=== PATIENT | male | born 1935 | race Hispanic/Latino ===

== ENCOUNTER 2018-01-21 00:19 | Inpatient (IN) | payer MEDICARE ==
[2018-01-21] VITALS (13 sets, daily range): BP systolic 127–169; BP diastolic 56–78
[~2018-01-21] VITALS: Ht 165.1 cm; Wt 72.2 kg
[2018-01-21] MEDS ORDERED: HYDRALAZINE HCL 20 MG/ML VIAL IV PRN (02:00)
[2018-01-21] MEDS ORDERED: ONDANSETRON HCL MDV 20ML 2 MG/ML VIAL IVP PRN (02:00)
[2018-01-21] MEDS ORDERED: ACETAMINOPHEN 325 MG TAB PO PRN (02:00)
[2018-01-21] MEDS: NITROGLYCERIN 1GM/1 INCH PACKET TD SCH ×4 (02:42→22:05)
[2018-01-21 04:01] LABS: HEMATOCRIT 35.3 % (42-54); MEAN CORPUSCULAR HEMOGLOBIN 32.8 pg (27.0-33.0); MEAN CORPUSCULAR HGB CONC 34.8 g/dL (32.0-36.0); MEAN CORPUSCULAR VOLUME 94.2 fL (79-99); PLATELET COUNT (AUTO) 131 K/uL (130-400); RED BLOOD CELL COUNT(AUTO) 3.74 MIL/uL (4.50-6.20); RED CELL DISTRIBUTION WIDTH 13.1 % (11.0-15.5)
[2018-01-21 04:10] LABS: CREATININE 1.1 mg/dL (0.5-1.5); POTASSIUM 3.9 mmol/L (3.5-5.1)
[2018-01-21 04:11] LABS: INR 1.05 (0.85-1.15)
[2018-01-21] MEDS ORDERED: LIDOCAINE HCL 2% 20ML ONE (07:58)
[2018-01-21] MEDS ORDERED: IOPAMIDOL-370 75 ML VIAL IV ONE (07:58)
[2018-01-21] MEDS ORDERED: ISOVUE-370 50ML VIAL IV ONE (07:58)
[2018-01-21] MEDS ORDERED: NITROGLYCERIN 5 MG/ML 10 ML VIAL IV ONE (07:58)
[2018-01-21] MEDS: ASPIRIN 325MG EC TAB 325 MG TABLET.DR PO SCH (09:00)
[2018-01-21] MEDS ORDERED: ENOXAPARIN SODIUM 1 MG/KG SQ SCH (09:00)
[2018-01-21] MEDS ORDERED: DEXTROSE 50%-WATER 50 ML DISP.SYRIN IV PRN (09:15)
[2018-01-21] MEDS ORDERED: GLUCAGON 1MG KIT 1 MG ML IM PRN (09:15)
[2018-01-21] MEDS ORDERED: ENOXAPARIN SODIUM 80 MG/0.8 ML SQ SCH ×2 (09:15)
[2018-01-21] MEDS ORDERED: CALCIUM CHLORIDE 100 MG/ML 10 ML SYG IVP ONE (12:00)
[2018-01-21] MEDS ORDERED: HEPARIN SODIUM 1000UNIT/ML 10ML VIAL IV ONE (12:00)
[2018-01-21] MEDS ORDERED: MAGNESIUM HYDROXIDE 30 ML/UDCUP PO PRN (16:15)
[2018-01-21] MEDS: FUROSEMIDE 20 MG TABLET PO SCH (16:52)
[2018-01-21] MEDS: LISINOPRIL 20 MG TABLET PO SCH (16:52)
[2018-01-21] MEDS: METOPROLOL TARTRATE 25 MG TAB PO SCH ×2 (16:52→22:05)
[2018-01-21 16:54] LABS: HEMOGLOBIN A1C 6.2 % (4.0-6.0)
[2018-01-21 16:59] LABS: CHOLESTEROL 141 mg/dL (<200); HDL CHOLESTEROL 35 mg/dL (29-71); LDL DIRECT 105 mg/dL (0-99); TRIGLYCERIDES 83 mg/dL (30-200)
[2018-01-22] MEDS: NITROGLYCERIN 1GM/1 INCH PACKET TD SCH ×3 (03:12→17:40)
[2018-01-22 03:53] VITALS: BP 138/59
[2018-01-22 05:11] LABS: BASOPHILS % (AUTO) 0.6 % (0.0-5.0); EOSINOPHILS % (AUTO) 3.1 % (0.0-8.0); HEMATOCRIT 33.5 % (42-54); LYMPHOCYTES % (AUTO) 28.8 % (21.0-51.0); MEAN CORPUSCULAR HEMOGLOBIN 34.1 pg (27.0-33.0); MEAN CORPUSCULAR HGB CONC 36.1 g/dL (32.0-36.0); MEAN CORPUSCULAR VOLUME 94.3 fL (79-99); MONOCYTES % (AUTO) 9.2 % (3.0-13.0); NEUTROPHILS % (AUTO) 58.3 % (40.0-77.0); PLATELET COUNT (AUTO) 121 K/uL (130-400); RED BLOOD CELL COUNT(AUTO) 3.55 MIL/uL (4.50-6.20); RED CELL DISTRIBUTION WIDTH 13.4 % (11.0-15.5)
[2018-01-22 05:22] LABS: INR 1.05 (0.85-1.15); PARTIAL THROMBOPLASTIN TIME 25.8 SEC (26.3-35.5)
[2018-01-22 05:28] LABS: CREATININE 1.1 mg/dL (0.5-1.5); MAGNESIUM 2.3 mg/dL (1.80-2.40); PHOSPHORUS 3.6 mg/dL (2.5-4.9); POTASSIUM 3.8 mmol/L (3.5-5.1)
[2018-01-22 07:36] VITALS: BP 123/66
[2018-01-22] MEDS: METOPROLOL TARTRATE 25 MG TAB PO SCH (08:53)
[2018-01-22] MEDS: FUROSEMIDE 20 MG TABLET PO SCH (09:00)
[2018-01-22] MEDS: ASPIRIN 325MG EC TAB 325 MG TABLET.DR PO SCH (09:00)
[2018-01-22] MEDS: LISINOPRIL 20 MG TABLET PO SCH (09:00)
[2018-01-22] MEDS ORDERED: HYDR25TA PO (10:42)
[2018-01-22 11:20] VITALS: BP 130/67
[2018-01-22] MEDS ORDERED: CEFUROXIME 1.5GM+NS 100ML 100 ML IV SCH (12:00)
[2018-01-22] MEDS ORDERED: CEFUROXIME SODIUM 1.5 GM VIAL IVP SCH (12:00)
[2018-01-22 16:05] VITALS: BP 108/61
[2018-01-22] MEDS ORDERED: EPINEPHRINE 1 MG/ML AMPULE ONE (18:03)
[2018-01-22] MEDS ORDERED: HEPARIN SODIUM 1000UNIT/ML 10ML VIAL ONE (18:03)
[2018-01-22] MEDS ORDERED: ESMOLOL HCL 10 MG/ML 10 ML VIAL ONE (18:03)
[2018-01-22] MEDS ORDERED: LIDOCAINE PF 2% 5ML ABBOJECT ONE (18:03)
[2018-01-22] MEDS ORDERED: ROCURONIUM BROMIDE 10MG/1ML 5ML VL ONE (18:03)
[2018-01-22] MEDS ORDERED: NOREPINEPHRINE BITARTRATE 1 MG/1 ML ML IV ONE (18:03)
[2018-01-22] MEDS ORDERED: PROTAMINE SULFATE 10 MG/ML 25ML VIAL IV ONE (18:03)
[2018-01-22] MEDS ORDERED: NEOSTIGMINE 5MG/5ML SYR IV ONE (18:03)
[2018-01-22] MEDS ORDERED: GLYCOPYRROLATE 0.2 MG/ML 5 ML VIAL ONE (18:03)
[2018-01-22] MEDS ORDERED: MILRINONE-D5W 20 MG/100 ML 0 ML IV ONE (18:03)
[2018-01-22] MEDS ORDERED: AMINOCAPROIC ACID 250 MG/ML 20 ML VIAL IV ONE (18:03)
[2018-01-22] MEDS ORDERED: PROPOFOL 10 MG/ML 20ML VIAL IV ONE (18:04)
[2018-01-22] MEDS ORDERED: FENTANYL CITRATE PF 50 MCG/1 ML 20ML VIAL IJ ONE (18:04)
[2018-01-22] MEDS ORDERED: MIDAZOLAM HCL 1 MG/ML 5ML VIAL ONE (18:04)
[2018-01-22 18:27] LABS: ABG BASE EXCESS -3.6 mmol/L (-2.0-3.0); ABG HCO3 20.6 mmol/L (21.0-28.0); ABG OXYGEN SATURATION 99.2 % (95.0-99.0); ABG PCO2 34 mmHg (35-48)
[2018-01-22] MEDS ORDERED: THROMBIN-JMI 5000 UNIT/VIAL TP ONE (18:38)
[2018-01-22] MEDS ORDERED: DELNIDO FORMULA 1 BAG IV ONE (18:38)
[2018-01-22] MEDS ORDERED: BACITRACIN 50,000 UNIT VIAL ONE (18:53)
[2018-01-22 19:56] LABS: ABG BASE EXCESS -3.7 mmol/L (-2.0-3.0); ABG HCO3 20.6 mmol/L (21.0-28.0); ABG OXYGEN SATURATION 98.7 % (95.0-99.0); ABG PCO2 35 mmHg (35-48)
[2018-01-22 21:02] LABS: ABG BASE EXCESS -6.1 mmol/L (-2.0-3.0); ABG HCO3 18.8 mmol/L (21.0-28.0); ABG OXYGEN SATURATION 96.5 % (95.0-99.0); ABG PCO2 35 mmHg (35-48)
[2018-01-22] MEDS ORDERED: SODIUM CHLORIDE 0.9% 500ML 500 ML IV SCH (21:29)
[2018-01-22] MEDS ORDERED: INSULIN REGULAR, HUMAN 3ML 100 UNIT in SODIUM CHLORIDE 0.9% 99 ML IV SCH ×2 (21:30)
[2018-01-22] MEDS ORDERED: SODIUM CHLORIDE 0.9% 1000ML 1,000 ML IV SCH (21:30)
[2018-01-22] MEDS ORDERED: EPINEPHRINE 2 MG in SODIUM CHLORIDE 0.9% 250 ML IV PRN (21:30)
[2018-01-22] MEDS ORDERED: AMINOCAPROIC ACID 15,000 MG in SODIUM CHLORIDE 0.9% 250 ML IV SCH (21:30)
[2018-01-22] MEDS ORDERED: ACETAMINOPHEN 650 MG SUPPOSITORY RC PRN (21:30)
[2018-01-22] MEDS ORDERED: TRAMADOL HCL 50 MG TABLET PO PRN (21:30)
[2018-01-22] MEDS ORDERED: MORPHINE SULFATE 2 MG/ML 1ML SYG IV PRN (21:30)
[2018-01-22] MEDS ORDERED: NITROGLYCERIN 50 MG/D5% WATER 250 BOT IV SCH (21:30)
[2018-01-22] MEDS ORDERED: MAGNESIUM 2GM PREMIX 50ML 50 ML IV PRN (21:30)
[2018-01-22] MEDS ORDERED: ACETAMINOPHEN 325 MG TAB PO PRN (21:30)
[2018-01-22] MEDS ORDERED: POTASSIUM PHOS 15 mMOL+NS250ML 250 ML IV PRN (21:30)
[2018-01-22] MEDS ORDERED: ONDANSETRON HCL 4 MG/2 ML VIAL IV PRN (21:30)
[2018-01-22] MEDS ORDERED: SODIUM CHLORIDE 0.9% 10 ML VIAL IVP PRN (21:30)
[2018-01-22] MEDS ORDERED: GLUCAGON 1MG KIT 1 MG ML IM PRN (21:30)
[2018-01-22] MEDS ORDERED: SODIUM CHLORIDE 0.9% 250 ML IV PRN (21:30)
[2018-01-22] MEDS ORDERED: PROPOFOL 1000 MG/100 ML 100 ML IV PRN (21:30)
[2018-01-22] MEDS ORDERED: SODIUM BICARB 8.4% 50ML SYRINGE IV PRN (21:30)
[2018-01-22] MEDS ORDERED: DEXTROSE 50%-WATER 50 ML DISP.SYRIN IV PRN (21:30)
[2018-01-22] MEDS ORDERED: NOREPINEPHRINE 4MG/NS 250ML 250 ML IV PRN (21:30)
[2018-01-22] MEDS ORDERED: NICARDIPINE HCL 100 MG in SODIUM CHLORIDE 0.9% 100 ML IV PRN (21:30)
[2018-01-22] MEDS ORDERED: ALBUMIN (HUMAN) 5% 250 ML IV PRN (21:30)
[2018-01-22 22:43] LABS: ABG BASE EXCESS -9.3 mmol/L (-2.0-3.0); ABG HCO3 16.8 mmol/L (21.0-28.0); ABG OXYGEN SATURATION 96.5 % (95.0-99.0); ABG PCO2 38 mmHg (35-48)
[2018-01-22] MEDS ORDERED: CEFUROXIME SODIUM 1.5 GM VIAL ONE (22:43)
[2018-01-22] MEDS ORDERED: SODIUM BICARB 50MEQ 50ML VIAL ONE (22:43)
[2018-01-22] MEDS ORDERED: OCTYL 2-CYANOACRYLATE 1 EACH TP ONE (22:53)
[2018-01-22] MEDS ORDERED: EPHEDRINE SULFATE 50 MG/ML AMPULE ONE (23:04)
[2018-01-22 23:30] VITALS: BP 149/79
[2018-01-22 23:45] VITALS: BP 160/71
[2018-01-23] VITALS (28 sets, daily range): BP systolic 99–137; BP diastolic 54–76
[2018-01-23 00:01] LABS: HEMATOCRIT 31.6 % (42-54); MEAN CORPUSCULAR HGB CONC 34.6 g/dL (32.0-36.0); MEAN CORPUSCULAR VOLUME 95.4 fL (79-99); PLATELET COUNT (AUTO) 122 K/uL (130-400); RED BLOOD CELL COUNT(AUTO) 3.31 MIL/uL (4.50-6.20); RED CELL DISTRIBUTION WIDTH 13.6 % (11.0-15.5); WHITE BLOOD COUNT (AUTO) 18.2 K/uL (4.8-10.8)
[2018-01-23 00:03] LABS: CREATININE 1.4 mg/dL (0.5-1.5); MAGNESIUM 1.7 mg/dL (1.80-2.40); PHOSPHORUS 6.3 mg/dL (2.5-4.9); POTASSIUM 3.5 mmol/L (3.5-5.1)
[2018-01-23 00:07] LABS: ABG OXYGEN SATURATION 88.5 % (95.0-99.0); ABG PCO2 44 mmHg (35-48)
[2018-01-23] MEDS ORDERED: SODIUM BICARB 50MEQ 50ML VIAL ONE ×2 (00:13→02:14)
[2018-01-23] MEDS: POTASSIUM CHLORIDE 20MEQ/100ML 100 ML IV PRN ×5 (00:29→22:47)
[2018-01-23] MEDS: IPRATROPIUM/ALBUTEROL SULFATE 3 ML SOLUTION IH SCH ×4 (00:45→18:58)
[2018-01-23 01:15] LABS: ABG BASE EXCESS -1.5 mmol/L (-2.0-3.0); ABG HCO3 22.3 mmol/L (21.0-28.0); ABG OXYGEN SATURATION 94.2 % (95.0-99.0); ABG PCO2 35 mmHg (35-48)
[2018-01-23] MEDS: MORPHINE SULFATE 4 MG/1ML SYG IV PRN ×2 (01:16→04:23)
[2018-01-23] MEDS ORDERED: IPRATROPIUM/ALBUTEROL SULFATE 3 ML SOLUTION IH ONE (01:32)
[2018-01-23 04:16] LABS: HEMATOCRIT 32.4 % (42-54); MEAN CORPUSCULAR HEMOGLOBIN 32.7 pg (27.0-33.0); MEAN CORPUSCULAR HGB CONC 34.6 g/dL (32.0-36.0); MEAN CORPUSCULAR VOLUME 94.3 fL (79-99); PLATELET COUNT (AUTO) 118 K/uL (130-400); RED BLOOD CELL COUNT(AUTO) 3.44 MIL/uL (4.50-6.20); RED CELL DISTRIBUTION WIDTH 13.4 % (11.0-15.5); WHITE BLOOD COUNT (AUTO) 15.5 K/uL (4.8-10.8)
[2018-01-23 04:28] LABS: CREATININE 1.6 mg/dL (0.5-1.5); MAGNESIUM 2.3 mg/dL (1.80-2.40); PHOSPHORUS 3.1 mg/dL (2.5-4.9); POTASSIUM 3.6 mmol/L (3.5-5.1)
[2018-01-23] MEDS ORDERED: CEFUROXIME SODIUM 1.5 GM VIAL IVP SCH (05:00)
[2018-01-23 05:12] LABS: ABG BASE EXCESS -1.2 mmol/L (-2.0-3.0); ABG HCO3 22.6 mmol/L (21.0-28.0); ABG OXYGEN SATURATION 98.4 % (95.0-99.0); ABG PCO2 35 mmHg (35-48)
[2018-01-23] MEDS ORDERED: CEFUROXIME 1.5GM+NS 100ML 100 ML IV SCH (05:30)
[2018-01-23] MEDS: CEFUROXIME SODIUM 1.5 GM VIAL IVP SCH ×2 (09:40→21:36)
[2018-01-23] MEDS: ASPIRIN 81MG TAB.CHEW PO SCH (09:41)
[2018-01-23] MEDS: FAMOTIDINE/PF 20 MG/2 ML VIAL IV SCH (09:41)
[2018-01-23] MEDS: ATORVASTATIN CALCIUM 40 MG TABLET PO SCH (09:41)
[2018-01-23] MEDS ORDERED: PHARMACY COMMUNICATION MISC SCH (15:15)
[2018-01-23] MEDS ORDERED: COMPOUND IV REFRIGERATED 1 EACH IVSOLN MISC PRN (16:30)
[2018-01-23 20:09] LABS: ABG BASE EXCESS 6.5 mmol/L (-2.0-3.0); ABG HCO3 30.2 mmol/L (21.0-28.0); ABG OXYGEN SATURATION 96.6 % (95.0-99.0); ABG PCO2 40 mmHg (35-48)
[2018-01-23] MEDS: PIPERACILLIN SODIUM/TAZOBACTAM 2.25 GM in SODIUM CHLORIDE 0.9% 50 ML IV SCH (20:37)
[2018-01-23] MEDS ORDERED: ZOSYN 3.375GM+NS 50ML 50 ML IV SCH (21:00)
[2018-01-23] MEDS ORDERED: FUROSEMIDE 10 MG/ML 2ML VIAL IV SCH (21:00)
[2018-01-23] MEDS ORDERED: ALBUMIN (HUMAN) 25% 100 ML IV SCH (21:03)
[2018-01-23] MEDS ORDERED: ALBUMIN (HUMAN) 25% 100 ML IV ONE (21:06)
[2018-01-23 23:05] LABS: ABG BASE EXCESS 7.1 mmol/L (-2.0-3.0); ABG OXYGEN SATURATION 95.6 % (95.0-99.0); ABG PCO2 41 mmHg (35-48)
[2018-01-24] VITALS (24 sets, daily range): BP systolic 121–189; BP diastolic 52–99
[2018-01-24] MEDS: IPRATROPIUM/ALBUTEROL SULFATE 3 ML SOLUTION IH SCH ×5 (00:10→23:16)
[2018-01-24 00:50] LABS: ABG BASE EXCESS 4.9 mmol/L (-2.0-3.0); ABG HCO3 29.2 mmol/L (21.0-28.0); ABG OXYGEN SATURATION 93.5 % (95.0-99.0); ABG PCO2 42 mmHg (35-48)
[2018-01-24] MEDS: TRAMADOL HCL 50 MG TABLET PO PRN ×2 (02:27→07:22)
[2018-01-24 04:07] LABS: BASOPHILS % (AUTO) 0.1 % (0.0-5.0); HEMATOCRIT 28.7 % (42-54); LYMPHOCYTES % (AUTO) 7.4 % (21.0-51.0); MEAN CORPUSCULAR HEMOGLOBIN 32.8 pg (27.0-33.0); MEAN CORPUSCULAR HGB CONC 34.6 g/dL (32.0-36.0); MEAN CORPUSCULAR VOLUME 94.9 fL (79-99); MONOCYTES % (AUTO) 5.1 % (3.0-13.0); NEUTROPHILS % (AUTO) 87.4 % (40.0-77.0); PLATELET COUNT (AUTO) 109 K/uL (130-400); RED BLOOD CELL COUNT(AUTO) 3.03 MIL/uL (4.50-6.20); RED CELL DISTRIBUTION WIDTH 13.8 % (11.0-15.5); WHITE BLOOD COUNT (AUTO) 13.4 K/uL (4.8-10.8)
[2018-01-24 04:15] LABS: CREATININE 1.7 mg/dL (0.5-1.5); MAGNESIUM 2.2 mg/dL (1.80-2.40); POTASSIUM 3.9 mmol/L (3.5-5.1)
[2018-01-24] MEDS: POTASSIUM CHLORIDE 20MEQ/100ML 100 ML IV PRN (05:06)
[2018-01-24 05:32] LABS: ABG BASE EXCESS 5.5 mmol/L (-2.0-3.0); ABG OXYGEN SATURATION 89.5 % (95.0-99.0); ABG PCO2 43 mmHg (35-48)
[2018-01-24] MEDS ORDERED: FUROSEMIDE 10 MG/ML 2ML VIAL IV SCH (07:45)
[2018-01-24] MEDS: GUAIFENESIN 600 MG TABLET.ER PO SCH ×2 (08:08→20:44)
[2018-01-24] MEDS: PIPERACILLIN SODIUM/TAZOBACTAM 2.25 GM in SODIUM CHLORIDE 0.9% 50 ML IV SCH (08:09)
[2018-01-24] MEDS: FAMOTIDINE/PF 20 MG/2 ML VIAL IV SCH (08:09)
[2018-01-24] MEDS: ATORVASTATIN CALCIUM 40 MG TABLET PO SCH (08:09)
[2018-01-24] MEDS: ASPIRIN 81MG TAB.CHEW PO SCH (08:09)
[2018-01-24] MEDS ORDERED: METOPROLOL TARTRATE 25 MG TAB PO SCH (09:00)
[2018-01-24] MEDS ORDERED: HYDRALAZINE HCL 25 MG TABLET PO SCH (09:00)
[2018-01-24] MEDS: METOPROLOL TARTRATE 25 MG TAB PO SCH ×2 (09:31→20:44)
[2018-01-24] MEDS: ISOSORBIDE MONO 30MG TAB SR PO SCH (09:32)
[2018-01-24] MEDS: ACETYLCYSTEINE 10% 100MG/ML 4ML VIAL IH SCH ×3 (11:03→23:16)
[2018-01-24] MEDS ORDERED: CEFUROXIME SODIUM 1.5 GM VIAL ONE (11:35)
[2018-01-24] MEDS: CEFUROXIME SODIUM 1.5 GM VIAL IVP SCH (11:37)
[2018-01-24] MEDS ORDERED: HYDRALAZINE HCL 20 MG/ML VIAL IV PRN (17:00)
[2018-01-24 17:38] LABS: ABG BASE EXCESS 3.1 mmol/L (-2.0-3.0); ABG HCO3 26.8 mmol/L (21.0-28.0); ABG OXYGEN SATURATION 84.9 % (95.0-99.0); ABG PCO2 38 mmHg (35-48)
[2018-01-24] MEDS: ZOSYN 3.375GM+NS 50ML 50 ML IV SCH (20:43)
[2018-01-24] MEDS: FUROSEMIDE 10 MG/ML 2ML VIAL IV SCH (20:44)
[2018-01-24] MEDS ORDERED: LORAZEPAM 2 MG/ML 1 ML VIAL IVP PRN (20:45)
[2018-01-24] MEDS ORDERED: HALOPERIDOL LACTATE 5 MG/ML VIAL IV PRN (21:00)
[2018-01-24] MEDS ORDERED: FUROSEMIDE 100 MG in SODIUM CHLORIDE 0.9% 90 ML IV SCH (21:00)
[2018-01-24 21:07] LABS: ABG BASE EXCESS 5.4 mmol/L (-2.0-3.0); ABG HCO3 29.3 mmol/L (21.0-28.0); ABG OXYGEN SATURATION 97.9 % (95.0-99.0); ABG PCO2 40 mmHg (35-48)
[2018-01-24] MEDS ORDERED: METOPROLOL TARTRATE 1 MG/ML 5ML VIAL IV ONE (21:11)
[2018-01-24] MEDS ORDERED: METOPROLOL TARTRATE 1 MG/ML 5ML VIAL IV SCH (21:15)
[2018-01-24] MEDS ORDERED: AMLODIPINE BESYLATE 5 MG TAB PO ONE (22:44)
[2018-01-24] MEDS: AMLODIPINE BESYLATE 5 MG TAB PO SCH (23:00)
[2018-01-25] VITALS (24 sets, daily range): BP systolic 88–182; BP diastolic 30–88
[2018-01-25 03:47] LABS: BASOPHILS % (AUTO) 0.2 % (0.0-5.0); LYMPHOCYTES % (AUTO) 8.4 % (21.0-51.0); MEAN CORPUSCULAR HGB CONC 34.2 g/dL (32.0-36.0); MEAN CORPUSCULAR VOLUME 96.6 fL (79-99); MONOCYTES % (AUTO) 2.8 % (3.0-13.0); NEUTROPHILS % (AUTO) 88.6 % (40.0-77.0); NUCLEATED RED BLOOD CELLS 0.1 % (0.0-0.19); PLATELET COUNT (AUTO) 100 K/uL (130-400); RED CELL DISTRIBUTION WIDTH 14.4 % (11.0-15.5); WHITE BLOOD COUNT (AUTO) 13.7 K/uL (4.8-10.8)
[2018-01-25 03:56] LABS: CREATININE 1.7 mg/dL (0.5-1.5); MAGNESIUM 2.2 mg/dL (1.80-2.40); POTASSIUM 3.5 mmol/L (3.5-5.1)
[2018-01-25] MEDS: ACETYLCYSTEINE 10% 100MG/ML 4ML VIAL IH SCH ×3 (06:24→19:17)
[2018-01-25 07:03] LABS: ABG BASE EXCESS 8.9 mmol/L (-2.0-3.0); ABG HCO3 32.7 mmol/L (21.0-28.0); ABG OXYGEN SATURATION 86.8 % (95.0-99.0); ABG PCO2 41 mmHg (35-48)
[2018-01-25] MEDS: FUROSEMIDE 10 MG/ML 2ML VIAL IV SCH ×2 (09:00→20:10)
[2018-01-25] MEDS ORDERED: ENOXAPARIN SODIUM 30 MG/0.3 ML SQ SCH (09:00)
[2018-01-25] MEDS: FAMOTIDINE/PF 20 MG/2 ML VIAL IV SCH (09:12)
[2018-01-25] MEDS: GUAIFENESIN 600 MG TABLET.ER PO SCH ×2 (09:12→20:11)
[2018-01-25] MEDS: ATORVASTATIN CALCIUM 40 MG TABLET PO SCH (09:12)
[2018-01-25] MEDS: METOPROLOL TARTRATE 25 MG TAB PO SCH ×2 (09:13→20:11)
[2018-01-25] MEDS: AMLODIPINE BESYLATE 5 MG TAB PO SCH (09:13)
[2018-01-25] MEDS: ZOSYN 3.375GM+NS 50ML 50 ML IV SCH ×2 (09:14→19:47)
[2018-01-25] MEDS: ISOSORBIDE MONO 30MG TAB SR PO SCH (11:37)
[2018-01-25] MEDS: POTASSIUM CHLORIDE 20MEQ/100ML 100 ML IV PRN ×3 (11:38→17:00)
[2018-01-25 14:01] LABS: ABG BASE EXCESS 8.1 mmol/L (-2.0-3.0); ABG HCO3 32.1 mmol/L (21.0-28.0); ABG PCO2 42 mmHg (35-48)
[2018-01-25] MEDS: CALCIUM GLUCONATE 1 GM in SODIUM CHLORIDE 0.9% 50 ML IV PRN (14:58)
[2018-01-25 15:32] LABS: MAGNESIUM 2.4 mg/dL (1.80-2.40); POTASSIUM 3.3 mmol/L (3.5-5.1)
[2018-01-25] MEDS: INSULIN HUMULIN R 100 UNIT/ML 3ML SQ SCH ×2 (17:03→20:23)
[2018-01-25] MEDS: IPRATROPIUM/ALBUTEROL SULFATE 3 ML SOLUTION IH SCH (19:17)
[2018-01-25] MEDS: ENOXAPARIN SODIUM 30 MG/0.3 ML SQ SCH (19:56)
[2018-01-25] MEDS: ASPIRIN 81MG TAB.CHEW PO SCH (20:11)
[2018-01-26] VITALS (18 sets, daily range): BP systolic 104–145; BP diastolic 46–78
[2018-01-26] MEDS: IPRATROPIUM/ALBUTEROL SULFATE 3 ML SOLUTION IH SCH ×4 (00:04→18:53)
[2018-01-26] MEDS: ACETYLCYSTEINE 10% 100MG/ML 4ML VIAL IH SCH ×4 (00:04→18:53)
[2018-01-26 05:31] LABS: HEMATOCRIT 31.5 % (42-54); MEAN CORPUSCULAR HEMOGLOBIN 32.8 pg (27.0-33.0); MEAN CORPUSCULAR HGB CONC 34.1 g/dL (32.0-36.0); MEAN CORPUSCULAR VOLUME 96.1 fL (79-99); PLATELET COUNT (AUTO) 93 K/uL (130-400); RED BLOOD CELL COUNT(AUTO) 3.28 MIL/uL (4.50-6.20); RED CELL DISTRIBUTION WIDTH 14.2 % (11.0-15.5); WHITE BLOOD COUNT (AUTO) 9.9 K/uL (4.8-10.8)
[2018-01-26 05:37] LABS: CREATININE 1.5 mg/dL (0.5-1.5); POTASSIUM 3.3 mmol/L (3.5-5.1)
[2018-01-26] MEDS: INSULIN HUMULIN R 100 UNIT/ML 3ML SQ SCH ×4 (05:55→20:33)
[2018-01-26] MEDS: FUROSEMIDE 10 MG/ML 2ML VIAL IV SCH ×3 (05:56→20:22)
[2018-01-26] MEDS: POTASSIUM CHLORIDE 20MEQ/100ML 100 ML IV PRN (06:48)
[2018-01-26] MEDS ORDERED: METOPROLOL TARTRATE 1 MG/ML 5ML VIAL IV SCH (08:26)
[2018-01-26] MEDS ORDERED: METOPROLOL TARTRATE 1 MG/ML 5ML VIAL IV ONE (08:29)
[2018-01-26] MEDS ORDERED: AMIODARONE HCL 150 MG in DEXTROSE 5%-WATER 100 ML IV SCH (08:45)
[2018-01-26] MEDS ORDERED: AMIODARONE HCL 900 MG in DEXTROSE 5%-WATER 500 ML IV SCH (08:45)
[2018-01-26] MEDS: ZOSYN 3.375GM+NS 50ML 50 ML IV SCH ×2 (09:06→19:26)
[2018-01-26] MEDS: ISOSORBIDE MONO 30MG TAB SR PO SCH (09:07)
[2018-01-26] MEDS: AMLODIPINE BESYLATE 5 MG TAB PO SCH (09:07)
[2018-01-26] MEDS: GUAIFENESIN 600 MG TABLET.ER PO SCH ×2 (09:07→20:23)
[2018-01-26] MEDS: ASPIRIN 81MG TAB.CHEW PO SCH (09:07)
[2018-01-26] MEDS: ATORVASTATIN CALCIUM 40 MG TABLET PO SCH (09:07)
[2018-01-26] MEDS: FAMOTIDINE/PF 20 MG/2 ML VIAL IV SCH (09:07)
[2018-01-26] MEDS: METOPROLOL TARTRATE 25 MG TAB PO SCH ×2 (09:08→20:23)
[2018-01-26] MEDS: ENOXAPARIN SODIUM 30 MG/0.3 ML SQ SCH (09:08)
[2018-01-26] MEDS: 1/2 NORMAL SALINE + 20 MEQ KCL 1,000 ML IV SCH ×2 (09:17→22:14)
[2018-01-26] MEDS: POTASSIUM CHLORIDE 20 MEQ ERTAB PO SCH (09:26)
[2018-01-26] MEDS: POLYETHYLENE GLYCOL 3350 17 GM POWD.PACK PO SCH (09:26)
[2018-01-27] VITALS (16 sets, daily range): BP systolic 86–133; BP diastolic 39–97
[2018-01-27] MEDS: IPRATROPIUM/ALBUTEROL SULFATE 3 ML SOLUTION IH SCH ×4 (00:33→19:23)
[2018-01-27] MEDS: ACETYLCYSTEINE 10% 100MG/ML 4ML VIAL IH SCH ×4 (00:34→19:23)
[2018-01-27 04:12] LABS: CREATININE 1.6 mg/dL (0.5-1.5); MAGNESIUM 2.4 mg/dL (1.80-2.40); POTASSIUM 3.7 mmol/L (3.5-5.1)
[2018-01-27] MEDS: FUROSEMIDE 10 MG/ML 2ML VIAL IV SCH ×2 (05:06→17:52)
[2018-01-27] MEDS ORDERED: DIGOXIN 250 MCG/ML 2ML AMP ONE (05:49)
[2018-01-27] MEDS ORDERED: DIGOXIN 250 MCG/ML 2ML AMP IV SCH (06:00)
[2018-01-27] MEDS: INSULIN HUMULIN R 100 UNIT/ML 3ML SQ SCH ×4 (06:10→21:00)
[2018-01-27] MEDS: FAMOTIDINE/PF 20 MG/2 ML VIAL IV SCH (08:22)
[2018-01-27] MEDS: ENOXAPARIN SODIUM 30 MG/0.3 ML SQ SCH (08:22)
[2018-01-27] MEDS: METOPROLOL TARTRATE 25 MG TAB PO SCH ×2 (08:22→21:04)
[2018-01-27] MEDS: ZOSYN 3.375GM+NS 50ML 50 ML IV SCH ×2 (08:22→20:06)
[2018-01-27] MEDS: ATORVASTATIN CALCIUM 40 MG TABLET PO SCH (08:23)
[2018-01-27] MEDS: POLYETHYLENE GLYCOL 3350 17 GM POWD.PACK PO SCH (08:23)
[2018-01-27] MEDS: GUAIFENESIN 600 MG TABLET.ER PO SCH ×2 (08:23→21:04)
[2018-01-27] MEDS: AMLODIPINE BESYLATE 5 MG TAB PO SCH (08:23)
[2018-01-27] MEDS: POTASSIUM CHLORIDE 20 MEQ ERTAB PO SCH ×2 (08:23→12:12)
[2018-01-27] MEDS: ASPIRIN 81MG TAB.CHEW PO SCH (08:23)
[2018-01-27] MEDS: TAMSULOSIN HCL 0.4 MG CAP.ER.24H PO SCH (08:23)
[2018-01-27 09:42] LABS: APPEARANCE,URINE Clear (CLEAR); BILIRUBIN,URINE Negative (NEGATIVE); COLOR,URINE Yellow (YELLOW); GLUCOSE, URINE (UA) Negative (NEGATIVE); KETONES,URINE Negative (NEGATIVE); LEUKOCYTE ESTERASE ,URINE Trace (NEGATIVE); NITRATE,URINE Negative (NEGATIVE); OCCULT BLOOD,URINE Large (NEGATIVE); PROTEIN,URINE Trace (NEGATIVE)
[2018-01-27 09:52] LABS: BACTERIA,URINE Rare /HPF (None Seen); SQUAMOUS EPITHELIAL CELL,UR Rare /HPF (0-2); WBC,URINE 0-1 /HPF (0-1)
[2018-01-27] MEDS: DIGOXIN 250 MCG/ML 2ML AMP IV SCH ×3 (11:24→18:00)
[2018-01-27] MEDS: 1/2 NORMAL SALINE + 20 MEQ KCL 1,000 ML IV SCH (12:12)
[2018-01-27] MEDS: POTASSIUM CHLORIDE 20MEQ/100ML 100 ML IV PRN (13:14)
[2018-01-27] MEDS: CALCIUM GLUCONATE 1 GM in SODIUM CHLORIDE 0.9% 50 ML IV PRN (13:16)
[2018-01-27] MEDS ORDERED: METOPROLOL TARTRATE 1 MG/ML 5ML VIAL IV PRN (14:30)
[2018-01-28] MEDS: ACETYLCYSTEINE 10% 100MG/ML 4ML VIAL IH SCH ×2 (00:23→06:28)
[2018-01-28] MEDS: IPRATROPIUM/ALBUTEROL SULFATE 3 ML SOLUTION IH SCH ×5 (00:23→23:43)
[2018-01-28 03:28] VITALS: BP 138/51
[2018-01-28 04:02] LABS: CREATININE 1.3 mg/dL (0.5-1.5)
[2018-01-28] MEDS: INSULIN HUMULIN R 100 UNIT/ML 3ML SQ SCH ×4 (06:19→20:58)
[2018-01-28 07:00] VITALS: BP 163/78
[2018-01-28] MEDS: FUROSEMIDE 10 MG/ML 2ML VIAL IV SCH (08:00)
[2018-01-28] MEDS ORDERED: DIGOXIN 250 MCG/ML 2ML AMP IV SCH (09:00)
[2018-01-28] MEDS: POTASSIUM CHLORIDE 20 MEQ ERTAB PO SCH ×2 (09:00→09:30)
[2018-01-28] MEDS ORDERED: FAMOTIDINE 20MG TAB 20 MG TAB ONE (09:01)
[2018-01-28] MEDS: ASPIRIN 81MG TAB.CHEW PO SCH (09:17)
[2018-01-28] MEDS: TAMSULOSIN HCL 0.4 MG CAP.ER.24H PO SCH (09:17)
[2018-01-28] MEDS: DIGOXIN 125 MCG TABLET PO SCH (09:18)
[2018-01-28] MEDS: METOPROLOL TARTRATE 25 MG TAB PO SCH ×2 (09:18→20:47)
[2018-01-28] MEDS: ZOSYN 3.375GM+NS 50ML 50 ML IV SCH ×2 (09:19→20:46)
[2018-01-28] MEDS: ATORVASTATIN CALCIUM 40 MG TABLET PO SCH (09:19)
[2018-01-28] MEDS: AMLODIPINE BESYLATE 5 MG TAB PO SCH (09:19)
[2018-01-28] MEDS: POLYETHYLENE GLYCOL 3350 17 GM POWD.PACK PO SCH (09:19)
[2018-01-28] MEDS: GUAIFENESIN 600 MG TABLET.ER PO SCH ×2 (09:19→20:46)
[2018-01-28] MEDS: ENOXAPARIN SODIUM 30 MG/0.3 ML SQ SCH (09:20)
[2018-01-28] MEDS: FAMOTIDINE 20MG TAB 20 MG TAB PO SCH (09:21)
[2018-01-28 11:00] VITALS: BP 120/52
[2018-01-28] MEDS: FUROSEMIDE 20 MG TABLET PO SCH ×2 (13:51→17:49)
[2018-01-28 16:00] VITALS: BP 132/58
[2018-01-28] MEDS: DIGOXIN 250 MCG/ML 2ML AMP IV SCH (18:00)
[2018-01-28 19:19] VITALS: BP 125/61
[2018-01-28 23:25] VITALS: BP 146/65
[2018-01-29 03:57] VITALS: BP 156/68
[2018-01-29 04:19] LABS: % IRON SATURATION 18.7 % (30-44)
[2018-01-29] MEDS: INSULIN HUMULIN R 100 UNIT/ML 3ML SQ SCH ×3 (05:41→16:30)
[2018-01-29] MEDS: IPRATROPIUM/ALBUTEROL SULFATE 3 ML SOLUTION IH SCH ×3 (06:20→17:14)
[2018-01-29 07:00] VITALS: BP 149/53
[2018-01-29] MEDS: ZOSYN 3.375GM+NS 50ML 50 ML IV SCH (08:36)
[2018-01-29] MEDS: AMLODIPINE BESYLATE 5 MG TAB PO SCH (08:37)
[2018-01-29] MEDS: DIGOXIN 125 MCG TABLET PO SCH (08:37)
[2018-01-29] MEDS: ASPIRIN 81MG TAB.CHEW PO SCH (08:37)
[2018-01-29] MEDS: FAMOTIDINE 20MG TAB 20 MG TAB PO SCH (08:37)
[2018-01-29] MEDS: GUAIFENESIN 600 MG TABLET.ER PO SCH (08:37)
[2018-01-29] MEDS: FUROSEMIDE 20 MG TABLET PO SCH ×2 (08:37→16:47)
[2018-01-29] MEDS: ENOXAPARIN SODIUM 30 MG/0.3 ML SQ SCH (08:37)
[2018-01-29] MEDS: POTASSIUM CHLORIDE 20 MEQ ERTAB PO SCH ×2 (08:38)
[2018-01-29] MEDS: TAMSULOSIN HCL 0.4 MG CAP.ER.24H PO SCH (08:38)
[2018-01-29] MEDS: POLYETHYLENE GLYCOL 3350 17 GM POWD.PACK PO SCH (08:38)
[2018-01-29] MEDS: ATORVASTATIN CALCIUM 40 MG TABLET PO SCH (08:38)
[2018-01-29] MEDS: METOPROLOL TARTRATE 25 MG TAB PO SCH (08:38)
[2018-01-29] MEDS ORDERED: COMPOUND IV MISC 1 EACH IVSOLN MISC PRN (09:45)
[2018-01-29 10:07] LABS: CREATININE 1.3 mg/dL (0.5-1.5); POTASSIUM 3.4 mmol/L (3.5-5.1)
[2018-01-29 11:00] VITALS: BP 149/63
[2018-01-29] MEDS: POTASSIUM CHLORIDE 20 MEQ ERTAB PO PRN ×2 (16:47→16:48)
[2018-01-30] MEDS ORDERED: IRON SUCROSE COMPLEX 100 MG in SODIUM CHLORIDE 0.9% 50 ML IV SCH (09:00)
== END 2018-01-29 17:45 | DRG 233 ==
LOC: 2AH 00:19 → 2CV 01-22 18:02 → 2CH 01-24 09:03 → 2BH 01-28 14:09
PROVIDERS: ADMIT Family Medicine; ATTEND Family Medicine
PROC: 4A023N7 Measurement of Cardiac Sampling and Pressure, Left Heart, Percutaneous Approach (ICD-10-PCS; principal; 2018-01-21)
PROC: B2111ZZ Fluoroscopy of Multiple Coronary Arteries using Low Osmolar Contrast (ICD-10-PCS; 2018-01-21)
PROC: 0B9F8ZX Drainage of Right Lower Lung Lobe, Via Natural or Artificial Opening Endoscopic, Diagnostic (ICD-10-PCS; 2018-01-21)
PROC: B2151ZZ Fluoroscopy of Left Heart using Low Osmolar Contrast (ICD-10-PCS; 2018-01-21)
PROC: 06BQ3ZZ Excision of Left Saphenous Vein, Percutaneous Approach (ICD-10-PCS; 2018-01-22)
PROC: 02100Z9 Bypass Coronary Artery, One Artery from Left Internal Mammary, Open Approach (ICD-10-PCS; 2018-01-22)
PROC: 0BH17EZ Insertion of Endotracheal Airway into Trachea, Via Natural or Artificial Opening (ICD-10-PCS; 2018-01-22)
PROC: 5A1935Z Respiratory Ventilation, Less than 24 Consecutive Hours (ICD-10-PCS; 2018-01-22)
PROC: 021209W Bypass Coronary Artery, Three Arteries from Aorta with Autologous Venous Tissue, Open Approach (ICD-10-PCS; 2018-01-22 18:00)
PROC: 5A1935Z Respiratory Ventilation, Less than 24 Consecutive Hours (ICD-10-PCS; 2018-01-23)
PROC: 5A1935Z Respiratory Ventilation, Less than 24 Consecutive Hours (ICD-10-PCS; 2018-01-24)
PROC: 5A1935Z Respiratory Ventilation, Less than 24 Consecutive Hours (ICD-10-PCS; 2018-01-25)
DX: I21.4 Non-ST elevation (NSTEMI) myocardial infarction (principal); J18.9 Pneumonia, unspecified organism; J96.00 Acute respiratory failure, unspecified whether with hypoxia or hypercapnia; D62 Acute posthemorrhagic anemia; E87.0 Hyperosmolality and hypernatremia; I31.9 Disease of pericardium, unspecified; J90 Pleural effusion, not elsewhere classified; J98.11 Atelectasis; N17.9 Acute kidney failure, unspecified; N39.0 Urinary tract infection, site not specified; T17.890A Other foreign object in other parts of respiratory tract causing asphyxiation, initial encounter; N18.4 Chronic kidney disease, stage 4 (severe); I25.110 Atherosclerotic heart disease of native coronary artery with unstable angina pectoris; D69.6 Thrombocytopenia, unspecified; E78.00 Pure hypercholesterolemia, unspecified; E78.5 Hyperlipidemia, unspecified; E87.6 Hypokalemia; E87.70 Fluid overload, unspecified; I12.9 Hypertensive chronic kidney disease with stage 1 through stage 4 chronic kidney disease, or unspecified chronic kidney disease; I48.0 Paroxysmal atrial fibrillation; R31.0 Gross hematuria; Z79.899 Other long term (current) drug therapy; Z79.82 Long term (current) use of aspirin; Z82.49 Family history of ischemic heart disease and other diseases of the circulatory system
CPT/HCPCS: 36415; 36600; 71045; 74230; 80048; 80061; 81001; 82330; 82435; 82803; 82947; 82948; 83036; 83540; 83550; 83605; 83735; 83880; 84100; 84132; 84295; 85018; 85025; 85027; 85347; 85610; 85730; 86850; 86900; 86901; 86922; 87040; 87071; 87088; 87101; 87116; 87205; 87206; 88104; 88305; 88312; 92526; 92610; 92611; 93005; 93458; 93880; 94002; 94003; 94010; 94150; 94640; 94660; 94664; 94667; 94668; 97039; A4218; A4338; A7048; C1760; C1894; J0171; J0282; J0610; J0697; J1160; J1644; J1650; J1756; J1815; J1940; J2001; J2250; J2260; J2270; J2543; J2704; J2710; J2720; J3010; J3475; J3480; J3490; J7030; J7040; J7060; J7608; P9046; Q9967

== ENCOUNTER → 2020-04-25 | Outpatient (CLI) | payer MEDICARE ==
[~2020-04-25] MED LIST: HYDR25TA PO
== END | disposition home or self-care (01) ==
LOC: SHCH 11:00
PROVIDERS: ATTEND Internal Medicine Cardiovascular Disease
DX: I73.9 Peripheral vascular disease, unspecified (principal)
CPT/HCPCS: 93922